=== PATIENT | female | born 1970 | race Caucasian/White ===

== ENCOUNTER 2017-08-20 22:01 | Emergency (ER) | payer SELFPAY ==
[2017-08-21] MEDS: PERCOCET 5MG/325MG TAB PO (02:45)
[2017-08-21] MEDS: KETOROLAC 30 MG/ML VIAL (J1885) IM (02:45)
[2017-08-21] MEDS: predniSONE 20 MG TAB PO (02:45)
[2017-08-21] MEDS: OXYCODONE/APAP 5MG/325MG(BULK FOR ED) 1 TABLET PO (02:45)
[2017-08-21] MEDS: IPRATROPIUM 0.5MG/ALBUTEROL 2.5MG INH SOL UD 3ML (DUONEB)(J7620) NEB (02:57)
== END 2017-08-21 03:29 | disposition home or self-care (01) ==
LOC: M ED 22:01
DX: R07.9 Chest pain, unspecified (principal); F17.210 Nicotine dependence, cigarettes, uncomplicated; Z78.0 Asymptomatic menopausal state; Z98.890 Other specified postprocedural states; Z88.8 Allergy status to other drugs, medicaments and biological substances
CPT/HCPCS: J1885

== ENCOUNTER 2018-06-16 15:59 | Emergency (ER) | payer SELFPAY ==
[2018-06-16] MEDS: NORCO, ANEXSIA 5/325MG TABLET (HYDROcodone/ACETAMINOPHEN) PO (18:29)
[2018-06-16] MEDS: ADACEL/BOOSTRIX VACCINE (DIPHTH/PERTUSS/ACELL/TETANUS)0.5ML SYR (90715) IM (18:29)
[2018-06-16] MEDS: NORCO 5/325MG TABLET (BULK FOR ED) PO (20:00)
== END 2018-06-16 20:10 | disposition home or self-care (01) ==
LOC: M ED 15:59
DX: S92.534A Nondisplaced fracture of distal phalanx of right lesser toe(s), initial encounter for closed fracture (principal); S90.221A Contusion of right lesser toe(s) with damage to nail, initial encounter; S91.104A Unspecified open wound of right lesser toe(s) without damage to nail, initial encounter; W20.8XXA Other cause of strike by thrown, projected or falling object, initial encounter; Y92.59 Other trade areas as the place of occurrence of the external cause; F17.200 Nicotine dependence, unspecified, uncomplicated; Z88.6 Allergy status to analgesic agent
CPT/HCPCS: 90715

== ENCOUNTER 2020-06-25 11:36 | Emergency (ER) | payer SELFPAY ==
[~2020-06-25] VITALS: Ht 157.5 cm; Wt 73.1 kg
[~2020-06-25 11:36] MED LIST: HYDR-3715 PO; PRED20TA PO
[2020-06-25] MEDS ORDERED: IBUP-1022 PO (11:47)
[2020-06-25] MEDS ORDERED: ACET-838 PO (11:47)
--- NOTE | 2020-06-25 12:46 | REP ---
INDICATION: pain COMPARISON: None. TECHNIQUE: Internal rotation, external rotation, and Y view. FINDINGS: No acute fracture or dislocation. The acromioclavicular and glenohumeral joints are intact. There is a very small 3 mm chronic calcification in the subacromial space suggesting very mild early calcific tendinopathy. No further degenerative changes noted. IMPRESSION: Essentially age-appropriate examination. Small focus of calcific tendinopathy suspected. <Electronically signed by Nicolás Levy > 06/25/20 [id number]
[2020-06-25] MEDS ORDERED: ACETAMINOPHEN TAB 650MG DOSE (2X325MG) PO ONE (13:00)
[2020-06-25] MEDS ORDERED: traMADol 50 MG TAB PO ONE (13:00)
[2020-06-25] MEDS ORDERED: ULTR50TA8 PO (13:14)
[2020-06-25 13:24] VITALS: BP 149/80
== END 2020-06-25 13:26 | disposition home or self-care (01) ==
LOC: M ED 11:36
DX: S46.001A Unspecified injury of muscle(s) and tendon(s) of the rotator cuff of right shoulder, initial encounter (principal); X58.XXXA Exposure to other specified factors, initial encounter; Y92.89 Other specified places as the place of occurrence of the external cause; Z88.8 Allergy status to other drugs, medicaments and biological substances; F17.210 Nicotine dependence, cigarettes, uncomplicated